=== PATIENT | female | born 1990 | race Hispanic/Latino ===

== ENCOUNTER → 2023-11-16 14:44 | Outpatient (CLI) | payer OTHER, SELFPAY ==
[2023-11-16 15:17] LABS: Add Manual Diff / Slide Review NO; Basophils Absolute Auto 0 /uL (0-100); Basophils Percent Auto 0.5 % (0-2); Eosinophils Absolute Auto 100 /uL (0-450); Eosinophils Percent Auto 1.3 % (2-4); Hematocrit 34.4 % (36-46); Hemoglobin 11.9 g/dL (12.0-16.0); Lymphocytes Absolute Auto 1800 /uL (1100-4500); Mean Corpuscular HGB Conc 34.5 % (30-36); Mean Corpuscular Hemoglobin 31.2 PG (26-34); Mean Corpuscular Volume 90.6 fL (80-100); Monocytes Absolute Auto 700 /uL (0-900); Monocytes Percent Auto 7.3 % (3-14); Neutrophils Absolute Auto 6800 /uL (1500-7000); Neutrophils Percent Auto 71.9 % (50-75); Platelet Count 231 X10^3/uL (150-400); Red Cell Distribution Width 12.6 % (11.6-14.8); White Blood Cell Count 9.4 X10^3/uL (4.5-11.0)
[2023-11-17 04:10] LABS: RPR Screen Non Reactive (Non Reactive)
[2023-11-17 07:21] LABS: Varicella IgG Antibody >4000 index (Immune >165)
[2023-11-19 16:11] LABS: Hepatitis B Surface Antigen NEGATIVE s/c (NEGATIVE)
[2023-11-19 16:22] LABS: HIV 1 & 2 Ab/Ag 4th Gen Combo NEGATIVE (NEGATIVE); Hep C Virus Ab w/Reflex Quant NEGATIVE s/c (NEGATIVE)
== END ==
PROVIDERS: PCP Student in an Organized Health Care Education/Training Program; Referring Provider Obstetrics & Gynecology; Visit Provider Obstetrics & Gynecology
DX: Z34.00 Encounter for supervision of normal first pregnancy, unspecified trimester (principal)
CPT/HCPCS: 36415; 80055; 86787; 86803; 86850; 86900; 86901; 87086; 87389

== ENCOUNTER → 2023-12-14 15:04 | Outpatient (CLI) | payer OTHER, SELFPAY ==
[2023-12-14 17:53] LABS: Urine N gonorrhoeae NOT DETECTED
[2023-12-14 17:58] LABS: Urine Chlamydia NOT DETECTED
[2023-12-18 22:19] LABS: AFP, Serum 44.2 ng/mL (.); Inhibin A, MoM 0.84 (.); Maternal Ethnicity Caucasian (.); Maternal Weight 149 lbs (.); Number of Fetuses No (.); OSBR Risk 1 IN 7603 (.); Results Report (.); Test Results *Screen Negative* (.); hCG, MoM 0.59 (.); hCG, Serum 21081 mIU/mL (.)
[2023-12-19 07:18] LABS: AFP PDF SCANNED
== END ==
LOC: LAB 15:05
PROVIDERS: PCP Student in an Organized Health Care Education/Training Program; Referring Provider Specialist; Visit Provider Specialist
DX: Z34.02 Encounter for supervision of normal first pregnancy, second trimester (principal)
CPT/HCPCS: 36415; 82105; 82677; 84702; 86336; 87491; 87591

== ENCOUNTER → 2024-01-11 14:07 | Outpatient (CLI) | payer OTHER, SELFPAY ==
--- NOTE | 2024-01-11 14:07 | DI.US.S_ITS ---
PROCEDURE: US OB >= 14 WEEKS FETUS INDICATIONS: 20 Week Anatomy Scan OUTSIDE/PRIOR DATING DATA: Last menstrual period (LMP): 08/18/2023. LMP-based estimated date of delivery (SHARON): 05/24/2024. First dating scan (date and location): 10/19/2023. Estimated date of delivery (SHARON) from first dating scan: 05/19/24. TECHNIQUE: Real-time scanning was performed of the fetus, with image documentation and biometric measurements. COMPARISON: [facility], , OB <= 14 WEEKS FETUS, 10/19/2023, 14:50. FINDINGS: General: A single living intrauterine gestation is present. Presentation: Vertex. Placenta: Placental position is anterior , without previa. Amniotic fluid index: 19.5 cm, normal range is 5-24 cm. Single deepest vertical pocket is 5.5 cm. heart rate: 160 beats per minute. Maternal cervical canal: 2 point cm long. Normal lower limit is 2.5 cm. biometrics: Biparietal diameter: 21 weeks 3 days Head circumference: 21 weeks 6 days Abdominal circumference: 22 weeks 1 day Femur length: 22 weeks 1 day Clinically estimated gestational age: 20 weeks 6 days Composite gestational age from present scan: 21 weeks 6 days Estimated weight and percentile: 470 g; 95% for gestational age. Measurement variability for biometric dating: +/- 7 days from 14 weeks to 15 weeks 6 days gestation, +/- 10 days from 16 weeks to 21 weeks 6 days gestation, +/- 2 weeks from 22 weeks to 27 weeks 6 days gestation, +/- 3 weeks for 28 weeks gestation or later. weight reference: 4500 g or EFW >90/95% is considered macrosomia or large for gestational age. EFW <10% is small for gestational age. EFW 5% or less is considered intra-uterine growth restriction. Anatomic survey: Neuro: Ventricles are non-dilated at less than 10 mm. Cisterna magna is normal at 3-11 mm. Cerebellum is normal in size and morphology. Nuchal skin fold: Normal at less than 6 mm between 14-21 weeks gestational age. Face: Nose and lips, facial profile are normal. Spine: No evidence for spina bifida. Heart: 4-chambered heart is present, with normal ventricular outflow tracts. Diaphragm: Diaphragm is intact. Stomach: Left-sided stomach is present. Kidneys: No hydronephrosis. Normal is less than 5 mm in 2nd trimester, less than 7 mm in 3rd trimester. Cord: 3-vessel cord has orthotopic insertion. Bladder: Normal in size. Extremities: All 4 extremities identified. IMPRESSION: 1. A single living intrauterine gestation. Interval growth within normal limits. 2. Normal anatomic survey. 3. The estimated weight is at 95 % for gestational age, concerning macrosomia. We strive to produce accurate, complete, and clear reports of imaging services. To assist us in improving patient care, this report was composed using standard report templates and voice recognition software. Therefore, it may contain abnormal punctuation, insertions and/or omissions. Occasional wrong-word or sound-alike substitutions may occur. Though we review the report and make efforts to correct it, we do recommend that the report be read carefully in proper context to recognize any text inaccuracies. Dictated by: Monica Goldberg M.D. on 01/11/2024 at 16:03 Approved by: Monica Goldberg M.D. on 01/11/2024 at 16:09
== END ==
PROVIDERS: PCP Student in an Organized Health Care Education/Training Program; Referring Provider Specialist; Visit Provider Specialist
DX: Z34.02 Encounter for supervision of normal first pregnancy, second trimester (principal); Z3A.21 21 weeks gestation of pregnancy
CPT/HCPCS: 76811

== ENCOUNTER → 2024-02-08 14:43 | Outpatient (CLI) | payer OTHER, SELFPAY ==
[2024-02-08 17:57] LABS: Hematocrit 34.4 % (36-46); Hemoglobin 11.6 g/dL (12.0-16.0)
[2024-02-08 18:12] LABS: GTT (PREG) 1 Hour PP 50gm Dose 92 mg/dL (76-139)
== END ==
PROVIDERS: PCP Student in an Organized Health Care Education/Training Program; Referring Provider Obstetrics & Gynecology; Visit Provider Obstetrics & Gynecology
DX: Z34.02 Encounter for supervision of normal first pregnancy, second trimester (principal); Z3A.26 26 weeks gestation of pregnancy
CPT/HCPCS: 36415; 82950; 85014; 85018

== ENCOUNTER 2024-04-25 13:56 | Outpatient (CLI) | payer OTHER, SELFPAY | END 2024-04-25 15:38 | disposition home or self-care (01) | LOC: OB 04-28 15:01 | PROVIDERS: PCP Student in an Organized Health Care Education/Training Program; Referring Provider Obstetrics & Gynecology; Visit Provider Obstetrics & Gynecology | DX: Z34.03 Encounter for supervision of normal first pregnancy, third trimester (principal); Z3A.35 35 weeks gestation of pregnancy | CPT/HCPCS: 59025; G0378; G0379 ==

== ENCOUNTER 2024-05-02 13:30 | Outpatient (CLI) | payer OTHER, SELFPAY | END 2024-05-02 13:57 | disposition home or self-care (01) | LOC: LABOR 13:50 → OB 05-05 06:19 | PROVIDERS: PCP Student in an Organized Health Care Education/Training Program; Referring Provider Obstetrics & Gynecology; Visit Provider Obstetrics & Gynecology | DX: O26.893 Other specified pregnancy related conditions, third trimester (principal); R10.9 Unspecified abdominal pain; Z3A.36 36 weeks gestation of pregnancy | CPT/HCPCS: 59025; 87653; G0378; G0379 ==

== ENCOUNTER → 2024-05-02 14:04 | Outpatient (CLI) | payer OTHER, SELFPAY ==
[2024-05-03 13:54] LABS: Strep Grp B PCR POS for Grp B Strep
== END ==
PROVIDERS: PCP Student in an Organized Health Care Education/Training Program; Visit Provider Obstetrics & Gynecology
DX: Z34.03 Encounter for supervision of normal first pregnancy, third trimester (principal); Z3A.36 36 weeks gestation of pregnancy
CPT/HCPCS: 87653

== ENCOUNTER 2024-05-09 13:24 | Observation (INO) | payer OTHER, SELFPAY | END 2024-05-09 14:43 | disposition home or self-care (01) | PROVIDERS: Admitting Provider Obstetrics & Gynecology; PCP Student in an Organized Health Care Education/Training Program; Referring Provider Obstetrics & Gynecology; Visit Provider Obstetrics & Gynecology | DX: O46.93 Antepartum hemorrhage, unspecified, third trimester (principal); O36.8130 Decreased fetal movements, third trimester, not applicable or unspecified; O42.92 Full-term premature rupture of membranes, unspecified as to length of time between rupture and onset of labor; Z3A.38 38 weeks gestation of pregnancy | CPT/HCPCS: 59025; G0378; G0379 ==

== ENCOUNTER 2024-05-11 09:47 | Outpatient (CLI) | payer OTHER, SELFPAY | END 2024-05-11 10:25 | disposition home or self-care (01) | LOC: OB 05-15 08:20 | PROVIDERS: PCP Student in an Organized Health Care Education/Training Program; Referring Provider Family Medicine; Visit Provider Family Medicine | DX: O46.93 Antepartum hemorrhage, unspecified, third trimester (principal); O36.8130 Decreased fetal movements, third trimester, not applicable or unspecified; O47.1 False labor at or after 37 completed weeks of gestation; Z3A.38 38 weeks gestation of pregnancy | CPT/HCPCS: 59025; 84112; G0378; G0379 ==

== ENCOUNTER 2024-05-12 08:05 | Inpatient (IN) | payer OTHER, SELFPAY ==
[2024-05-12 11:11] LABS: Add Manual Diff / Slide Review NO; Basophils Absolute Auto 100 /uL (0-100); Basophils Percent Auto 0.5 % (0-2); Eosinophils Absolute Auto 100 /uL (0-450); Eosinophils Percent Auto 0.8 % (2-4); Hemoglobin 12.6 g/dL (12.0-16.0); Lymphocytes Absolute Auto 1400 /uL (1100-4500); Lymphocytes Percent Auto 12.3 % (25-40); Mean Corpuscular HGB Conc 34.1 % (30-36); Mean Corpuscular Hemoglobin 31.2 PG (26-34); Mean Corpuscular Volume 91.5 fL (80-100); Monocytes Absolute Auto 800 /uL (0-900); Monocytes Percent Auto 7.6 % (3-14); Neutrophils Absolute Auto 8800 /uL (1500-7000); Neutrophils Percent Auto 78.8 % (50-75); Platelet Count 221 X10^3/uL (150-400); Red Blood Cell Count 4.04 X10^6/uL (4.0-5.2); Red Cell Distribution Width 14.3 % (11.6-14.8); White Blood Cell Count 11.1 X10^3/uL (4.5-11.0)
[2024-05-12] MEDS: AMPICILLIN 2,000 MG in SODIUM CHLORIDE 0.9% 100 ML 200 MG IV (11:21)
[2024-05-12] MEDS: LACTATED RINGERS 1,000 ML 100 ML IV (11:23)
--- NOTE | 2024-05-12 14:29 | PM.OBHP.1 ---
OB HPI Date/Time Date of admission: 05/12/24 Date Patient Seen: 05/12/24 History of Present Condition Chief complaint: NST : 1 Estimated Date of Delivery: 05/24/24 Estimated Gestational Age (weeks): 38.2 Narrative: Soraya George is a 33 year old female G1 at 38w2d who presents with c/o new vaginal bleeding and concern for LOF. Was seen at end of last week and over weekend for prodromal labor and r/o SROM, amnitest negative and discharged with precautions. Pt states she awoke this AM with new bright red vaginal bleeding on her pad as well as some fluid. +SROM confirmed on arrival per sterile speculum exam History of Present care: good care Dating criteria: LMP confirmed by 1st trimester US Ultrasounds: normal 1st trimester US and normal mid trimester US Abnormal ultrasound findings: noted grade 3 placenta Preadmission Labs Blood type: O (+) positive -: Antibody screen: negative, Cystic fibrosis screen: unknown, GBS status: positive, HBsAG: negative, HIV: negative, HSV 1: unknown, HSV 2: unknown and RPR/VDLR: negative -: Chlamydia screen: not detected and Gonorrhea screen: not detected -: Rubella: immune and Varicella: immune HCT: 37.0 PAP: Normal Quad screen: Normal 1 hr GTT: 96 Prior (ies) History: n/a Evaluation Evaluation Baseline heart rate: 140 Variability: Moderate (11-25) monitor accelerations: Present Monitor Decelerations: Absent Contraction Frequency (minutes): 4 Uterine Contraction Intensity: Moderate Category of Tracing: Reactive Status: Category l Dilation (cm): 3 Effacement (%): 80 Dilation: 3-4 cm Effacement: >/=80% station: -2 Position of cervix: mid Consistency: medium Arevalo score: 8 Comments: +pooling, noted wet perineum PFSH Medical History (Updated 03/07/24 @ 09:26 by Almaz Green MD) Depression (~2020) Anxiety (~2020) Migraines (~2018) Tinnitus (~2017) Chlamydia (~2012) Healthy adult Surgical History (Updated 12/07/23 @ 13:51 by Renate Mosqueda) Anesthesia History of photorefractive keratectomy (PRK) (~04/2016) History of appendectomy (~2009) [place] teeth extracted Family History (Updated 12/07/23 @ 13:56 by Renate Mosqueda) Grandmother Diabetes mellitus Hyperlipidemia Hypertension Stroke Mother Depression Anxiety Cervical cancer Hx of cholecystectomy Osteopenia Fibrocystic breast changes GERD (gastroesophageal reflux disease) Hypertension Mental health problem Grandfather Pancreatic cancer Grandmother Diabetes mellitus Hypertension Hyperlipidemia Pancreatic cancer Grandfather Family estrangement Diabetes mellitus Hypertension Father Diabetes mellitus Hypertension Brother Lupus Sister Gastrointestinal disorder Thyroid disease Uncle Stomach cancer Aunt Kidney disease Uncle Alcohol abuse Alcoholic liver disease Brother Mental health problem Social History marital status: number of children: 0 household members: spouse lives independently: Yes caregiver/support person: No housing: house pets and animals: Yes (dogs) education level: college (Associate's degree) occupational status: employed (works from home) current occupational exposures/hazards: Yes special oma needs: No travel history: recent ([place], [place], domestic) seatbelt use: always water heater temp set < 120 deg: Yes working smoke detector in home: Yes fire extinguisher in home: Yes carbon monox detector in home: Yes firearms in home: Yes firearms unloaded and locked: Yes do you feel safe at home: Yes Smoking Status: Never smoker second hand exposure: No alcohol intake: former (3-5 glasses wine/week when not ) substance use type: does not use during the past year weight has: decreased > 10 lbs (intentional) daily servings fruits/ve-4 (mostly fruit, rarely eats vegetables) caffeine: Yes (minimal) Type(s) of exercise: none Meds Home Medications and Allergies Home Medications Medication Instructions Recorded Confirmed Type [id number] 400 mcg-om3 35 mg-dha 25 tab PO 10/08/23 05/09/24 History mg-epa 5 mg-fish oil chewable tablet cholecalciferol (vitamin D3) 25 25 mcg PO DAILY 10/08/23 05/12/24 History mcg (1,000 unit) capsule (Vitamin D3) citalopram 10 mg tablet (Celexa) 10 mg PO DAILY #30 tabs 02/08/24 05/12/24 Rx breast pump #1 ea 03/10/24 05/12/24 Rx Allergies Allergy/AdvReac Type Severity Reaction Status Date / Time No Known Drug Allergies Allergy Unverified 05/09/24 14:00 Review of Systems Review of Systems ROS: Yes All systems reviewed with the patient and are negative except as otherwise documented OB Exam Vital signs Blood Pressure: 130/72 Pulse Rate: 80 Respiratory Rate: 18 Temperature: 36.4 F Narrative Exam Narrative: resting comfortably, breathing through contractions without difficulty HENMT Head: normal to inspection Mouth: oral mucosae normal Eyes General: appearance normal, both eyes and all related structures Resp Effort & Inspection: normal respiratory effort Cardio Rate: regular rate Rhythm: regular rhythm Extremities Lower extremity: Yes normal to inspection GI Inspection: normal to inspection Other: gravid, annabella cephalic 7.5# External Female Exam: Yes normal external appearance Speculum Exam - Vagina: Yes normal appearance of the vagina OB/External & Speculum: other (pooling, prolapsed membranes noted at os ) Presentation: vertex Estimated Weight (lbs): 7 Other: empiric diagnosis of SROM based on pooling, amnisure without utility given recent vaginal bleeding; no evidence of active bleeding on exam, moderate bloody show consistent with early labor Objective Labs 05/12/24 10:15 Labs: Laboratory Results - last 24 hr 05/12/24 10:15 WBC 11.1 H RBC 4.04 Hgb 12.6 Hct 37.0 MCV 91.5 MCH 31.2 MCHC 34.1 RDW 14.3 Plt Count 221 Neut % (Auto) 78.8 H Lymph % (Auto) 12.3 L [place] % (Auto) 7.6 Eos % (Auto) 0.8 L Baso % (Auto) 0.5 Neut # (Auto) 8800 H Lymph # (Auto) 1400 Gran[place] # (Auto) 800 Eos # (Auto) 100 Baso # (Auto) 100 Blood Type O Positive Antibody Screen Negative Assessment and Plan Assessment and Plan Assessment and Plan narrative: 33yo G1 at 38w2d present to L&D in early active labor, presumed SROM prior to arrival Early labor, SROM suspect high leak, +pooling admit to center, anticipate augmentation with pitocin in alevism contractions stop; encourage ambulation, ok for wireless vs intermittent monitoring VSS/afebrile, cat 1 tracing GBS+, start IV amp per protocol plan interval cervical assessment 4-6hrs, sooner PRN/urge to push Pt is consented for vaginal, vaginal operative and delivery as well as transfusion of blood products as medically indicated. Time Spent with Patient Total time spent with greater than 50% in coordination of care (as documented) at patient's floor/unit and/or counseling patient:: 15-24 minutes
[2024-05-12 14:46] VITALS: BP 130/72; PULSE 80; RESP 18; TEMP 2.4; TEMP 36.4
[2024-05-12] MEDS: AMPICILLIN 1,000 MG in SODIUM CHLORIDE 0.9% 100 ML 200 MG IV ×2 (15:32→19:26)
[2024-05-12] MEDS: OXYTOCIN PREMIX 30 UNIT/500 ML PLAST..BAG IV (16:37)
--- NOTE | 2024-05-12 16:50 | PM.AN.REGBLK ---
[facility] <Leatha Major, DO - Last Filed: 05/12/24 16:54> Pre-procedure Procedure: Continuous Lumbar Epidural for L&D (with dural puncture) Attending OB provider: Mattie HANSEN/JAVI narrative: 33yo female in labor requesting epidural. See pre-anesthesia evaluation for further details. ASA Class: II Labs: Hct 37.0 % (36-46) 05/12/24 10:15 Plt Count 221 X10^3/uL (150-400) 05/12/24 10:15 Medications: Current Medications Generic Name Dose Route Start Last Admin Trade Name Freq PRN Reason Stop Dose Admin Calcium Carbonate 1,000 mg 05/12/24 09:43 Calcium Carbonate 500 Mg Tab PO Q4HR PRN Dyspepsia Carboprost Tromethamine 250 mcg 05/12/24 09:43 Carboprost 250 Mcg/Ml Ampul IM Q90M PRN Bleeding Diphenhydramine HCl 25 mg 05/12/24 15:30 Diphenhydramine 50 Mg/Ml Vial IV Q10M PRN Pruritis Ephedrine Sulfate 10 mg 05/12/24 15:30 Ephedrine 50 Mg/Ml Vial IV Q5M PRN Blood pressure decrease more than 20% of baseline. Oxytocin/Lactated Ringer's 30 unit in 500 mls @ 200 mls/hr 05/12/24 09:43 Oxytocin Premix IV CONT PRN Bleeding Protocol Tranexamic Acid 1,000 mg/ 100 mls @ 600 mls/hr 05/12/24 09:43 Sodium Chloride IV NOW PRN Bleeding Ampicillin Sodium 1,000 mg/ 100 mls @ 200 mls/hr 05/12/24 15:30 05/12/24 15:32 Sodium Chloride IV 200 mls/hr Q4H ZAK Administration Lactated Ringer's 1,000 mls @ 100 mls/hr 05/12/24 09:45 05/12/24 11:23 Lactated Ringers IV 100 mls/hr CONT ZAK Administration FENT 2MCG/ML BUPIV 0.125% EPI 200 mcg in 100 mls @ 6 mls/hr 05/12/24 15:30 Fentanyl/Bupiv/Ns 2mcg/Ml - 0.125% EPIDURAL CONT ZAK Oxytocin/Lactated Ringer's 30 unit in 500 mls @ 1 mls/hr 05/12/24 16:15 05/12/24 16:37 Oxytocin Premix IV 1 milliunit/min TITRATE ZAK 1 mls/hr Administration Protocol 1 MILLIUNIT/MIN Lidocaine HCl 20 ml 05/12/24 09:43 Lidocaine 1% 20 Ml INJ INTRA-OP PRN Post Delivery Methylergonovine Maleate 0.2 mg 05/12/24 09:43 Methylergonovine 0.2 Mg Tablet PO Q6HR PRN Heavy Bleeding Methylergonovine Maleate 0.2 mg 05/12/24 09:43 Methylergonovine 0.2 Mg/Ml Vial IM NOW PRN Bleeding Mineral Oil 30 ml 05/12/24 09:43 Mineral Oil 30 Ml Udc TOP PRN PRN Version Misoprostol 800 mcg 05/12/24 09:43 Misoprostol 200 Mcg Tablet FL NOW PRN Bleeding Misoprostol 400 mcg 05/12/24 09:43 Misoprostol 200 Mcg Tablet SL NOW PRN Bleeding Nalbuphine HCl 2.5 mg 05/12/24 15:30 Nalbuphine 20 Mg/Ml Ampul IV Q10M PRN Pruritis Naloxone HCl 0.2 mg 05/12/24 09:43 Naloxone 0.4 Mg/Ml Vial IV Q2MIN PRN Opiate Reversal Ondansetron HCl 4 mg 05/12/24 09:43 Ondansetron 4 Mg/2 Ml Inj IV Q4HR PRN Nausea And Vomiting Oxytocin 10 unit 05/12/24 09:43 Oxytocin 10 Unit/Ml Vial IM NOW PRN Bleeding Allergies: Allergies Allergy/AdvReac Type Severity Reaction Status Date / Time No Known Drug Allergies Allergy Unverified 05/09/24 14:00 Procedure Insertion date: 05/12/24 Insertion time: 16:52 Prep/Local: 1% lidocaine (3 ml, chloraprep) Interspace: L3-4 Patient position: sitting Needle: 18 gauge Hustead (27g 5 Pencan for dural puncture) Loss of resistance with: saline RAMANA at (cm): 7 Catheter placed at SKIN (cm): 14 Catheter in SPACE (cm): 7 Insertion: Yes CSF, No Blood, Yes Paresthesia with insertion, No Paresthesia with injection and No Test dose reaction Initial Medications TEST DOSE time: 16:53 TEST DOSE: 1.5% lidocaine with epinephrine 1:200k (mL): 3 BOLUS DOSE time: 15:12 BOLUS DOSE (mL): 2 BOLUS DOSE med: other (same as test dose) Infusion INFUSION: 0.125% bupivacaine and with fentanyl 2 mcg/mL Initial rate (mL/hr): 10 Subsequent interventions: Pt c/o 5/10 pain when epidural infusion started. Bolused with additional 5 ml from epidural infusion bag. Post-procedure Anesthesia date START: 05/12/24 Anesthesia time START: 16:54 <Yonatan Astorga DO - Last Filed: 05/12/24 23:00> Infusion Subsequent interventions: Pt c/o 5/10 pain when epidural infusion started. Bolused with additional 5 ml from epidural infusion bag. Leak noted at filter. Filter removed and pt given 5mL bolus with resolution of pain. . Post-procedure Anesthesia date END: 05/12/24 Anesthesia time END: 21:46 Post-procedure Anesthesia Assessment: Yes CV function: HR/BP stable, Yes Resp function: RR/sat/airway adequate, Yes Post-op hydration adequate, Yes Pain control adequate, Yes Nausea & vomiting absent, Yes Temperature > 36 C, Yes Mental status appropriate and No Anesthesia complications
--- NOTE | 2024-05-12 22:14 | PM.OBPRVD ---
Events: Other (SROM prior to arrival, no complications ) Labor & Delivery Delivery date: 05/12/24 Intrapartal Events: None Cervical ripening method: none Induction method: none Delivery augmentation: pitocin Delivery monitor: external FHT Route of delivery: Episiotomy description: None L&D Laceration Description: Perineal - 2nd Degree Delivery repair: vicryl Estimated blood loss (mL): 300 Anesthesia Type: Epidural Complications: none Narrative: Patient notified RN of increased sensation of rectal pressure, SVE C/C/+1. Progressive descent with excellent maternal effort. Delivery of head in LOT position with restitution to OA. Anterior shoulder delivered without difficulty with gentle downward traction, subsequent spontaneous delivery of posterior shoulder and body thereafter. vigorous at delivery and placed on maternal abdomen. Delayed cord clamping x120s. Cord doubly clamped and cut by FOB; 3VC noted. Cord blood collected. Spontaneous delivery of placenta <5min from delivery with gentle downward traction on UC. Perineal exam noted a 2nd degree laceration repaired with 2-0 vicryl in standard fashion with excellent reapproximation noted. Hemostasis noted. Fundus palpated and noted to be firm. Straight catheterization of approximately 100cc clear urine. All counts correct x2. Baby 1: gender: Female Presentation: vertex Position: Left Occiput Transverse Placenta delivery description: Spontaneous Cord Vessel Description: 3 Vessels score (1 min): 8 score (5 min): 9 Plan for aftercare: Routine care
[2024-05-12] MEDS: ONDANSETRON 4 MG/2 ML INJ IV (23:55)
[2024-05-13 06:54] LABS: Hematocrit 28.9 % (36-46); Hemoglobin 9.9 g/dL (12.0-16.0)
[2024-05-13 07:00] VITALS: BP 99/67; PULSE 66; RESP 18; TEMP 36.6
[2024-05-13] MEDS: ACETAMINOPHEN 325 MG TABLET 650 MG PO ×3 (09:05→22:35)
[2024-05-13] MEDS: CITALOPRAM 10 MG TABLET PO (09:05)
[2024-05-13] MEDS: IBUPROFEN 600 MG TABLET PO ×3 (09:05→22:35)
--- NOTE | 2024-05-13 13:49 | PM.OBPN.1 ---
Subjective - OB Subjective Patient comments: pain well controlled and tolerating diet [place] baby status: doing well and nursing well [place] feeding status: exclusively breast feeding Narrative: Pt resting in chair, at breast. States overall she is feeling well, denies fever/chills, n/v, dysuria. States lochia is dl to heavy menses, not passing clots. Does endorse diffuse msk aching and tenderness, likely secondary to expulsive efforts with epidural in place. CHRISTINA per RN, maternal VSS/afebrile Date Patient Seen: 05/13/24 Time Patient Seen: 12:00 Interval history: PPD1 s/p of LBFI Exam Vital Signs (past 8 hours): maternal VSS reviewed as per OBIX and wnl, afebrile Const General: cooperative, healthy appearing and well developed Nutritional Appearance: average body habitus Orientation: alert, awake and oriented x3 Limitations: mental status not altered HENMT Head: normal to inspection Mouth: moist mucous membranes Neck Neck: normal visual inspection Chest Chest: normal inspection of the chest Breast inspection: normal inspection of the breasts Resp Effort & Inspection: normal respiratory effort Cardio Rate: regular rate Pulses: normal peripheral pulses GI Inspection: normal to inspection Other: fundus firm << umb, mild tenderness to palpation without rebound or guarding Other: deferred per shared decision making with patient; 2nd degree laceration repaired with 2-0 vicryl Skin General: no rashes or lesions noted Neuro General: patient alert, patient awake and patient oriented x3 Extrem General: normal to inspection Psych Appearance: grossly normal Mental Status: mental status grossly normal Speech and Movement: speech and movement normal Mood: congruent mood Affect: normal affect Judgment: judgment good Objective Labs 05/13/24 06:45 Labs: Laboratory Results - last 24 hr 05/13/24 06:45 Hgb 9.9 L Hct 28.9 L Assessment & Plan Plan day: 1 plan OB: routine care Comments: Asymptomatic chronic maternal anemia with acute superimposed blood loss; plan for iron supplementation on discharge PNL reviewed, rubella immune, GBS+, remainder wnl noted mild fundal tenderness on exam, no maternal fever or increased bleeding concerning for endometritis however low threshold to start abx if abdominal tenderness persists or worsens exclusively, support PRN POP on discharge for contraception anticipate dc to home PPD2 pending clinical course Time Spent With Patient Time: Total time spent is greater than 50% in coordination of care (as documented) at patient's floor/unit and/or counseling patient: Time with patient: 15-24 minutes
[2024-05-13] MEDS: LANOLIN OINT 7 GM 1 APPLIC TOP (22:35)
[2024-05-14] MEDS: IBUPROFEN 600 MG TABLET PO (07:22)
[2024-05-14] MEDS: CITALOPRAM 10 MG TABLET PO (07:23)
[2024-05-14] MEDS: ACETAMINOPHEN 325 MG TABLET 650 MG PO (07:38)
--- NOTE | 2024-05-14 08:05 | P.DS_ITS ---
Discharge Providers Provider Date of admission: 05/12/24 08:05 Discharge Date: 05/14/24 Primary care physician: Samina Mahoney MD Consults: 05/12/24 09:43 Consult to Anesthesiology Urgent Comment: Consulting Provider: Anesthesiologist Reason for consultation: Epidural 05/13/24 22:10 Consult to Medical Collections Specialist Routine Comment: Discharge provider: Anabela Jackson MD Summary Hospital Course Date Patient Seen: 05/14/24 Time Patient Seen: 08:15 Diagnoses: 38-2/7 weeks gestation Spontaneous rupture of membranes Epidural analgesia Spontaneous vaginal delivery Second-degree laceration Hospital Course: Patient is a 33-year-old 1 who presented on May 12, 2024 with spontaneous rupture of membranes and in early labor. At 5 cm she was started on Pitocin. She received an epidural for pain management. On May 13, 2024 she had a spontaneous vaginal delivery without complication. Her course was unremarkable. She was discharged home on May 14, 2024. Peripartum Data Delivery Method: Natural Vaginal Laceration Description: Perineal - 2nd Degree Episiotomy description: None Procedures: Epidural analgesia Pitocin augmentation of labor Spontaneous vaginal delivery Second-degree laceration repair complications: none 1: Gender: Female Disposition of : home Status at Discharge Cognitive/behavioral status at discharge: oriented Functional status at discharge: independent ambulation Overall status at discharge: patient is progressing back to baseline Time Spent with Patient Time attestation: Total time spent providing and/or coordinating discharge services: Time spent: Less than 30 minutes Objective Labs 05/13/24 06:45 Exam Narrative Exam Narrative: Generally: Patient is sitting up in bed, no acute distress Fundus: Firm at U -1 Extremities: Trace edema, negative [place] Discharge Plan Discharge Plan Patient Disposition: Home Provider Discharge Comment: Call with fever, chills, or bleeding vaginally more than a pad in an hour Ibuprofen 600 mg every 6 hours as needed for cramping Tylenol 650 mg every 6 hours as needed for pain Push oral fluids Continue vitamins Discharge orders & Medications Prescriptions: Continued [id number] oil 400 mcg-35 mg -25 mg-5 mg tablet,chewable PO cholecalciferol (vitamin D3) [Vitamin D3] 25 mcg (1,000 unit) capsule 25 mcg PO DAILY citalopram [Celexa] 10 mg tablet 10 mg PO DAILY Qty: 30 4RF No Action (DME) breast pump Device See Rx Instructions .ROUTE .MEDSUPPLY Qty: 1 0RF Rx Instructions: Double electric breast pump and supplies Follow up/Referrals: Anabela Jackson MD [Physician] - 6 Weeks (Post appt on 06/27/2024 @ [address] Jacksno) Diet/Activity/Treatments Diet: Regular Activity: Nothing in the vagina for 6 weeks Skin/Wound/Dressing Care Report to your healthcare provider any signs of infection, such as:: chills, fever, increased pain and unusual drainage Visit Report/Discharge Packet Instructions: DI for Labor and Delivery, Vaginal Stand Alone Forms: Patient Portal/API, Stroke Signs & Symptoms Discharge Data Primary Care Provider: Samina Mahoney
== END 2024-05-14 12:15 | disposition home or self-care (01) | DRG 807 ==
PROVIDERS: Admitting Provider Obstetrics & Gynecology; PCP Student in an Organized Health Care Education/Training Program; Referring Provider Obstetrics & Gynecology; Visit Provider Obstetrics & Gynecology
DX: O46.93 Antepartum hemorrhage, unspecified, third trimester (principal); O70.1 Second degree perineal laceration during delivery; Z37.0 Single live birth; O99.824 Streptococcus B carrier state complicating childbirth; Z3A.38 38 weeks gestation of pregnancy
CPT/HCPCS: 36415; 59050; 85014; 85018; 85025; 86850; 86900; 86901; G0379; J0290; J2405; J2590

== ENCOUNTER 2024-05-17 00:47 | Emergency (ER) | payer OTHER, SELFPAY ==
[2024-05-17 00:55] VITALS: BP 109/63; PULSE 76; RESP 16; TEMP 36.7; O2SAT 95; BMI 28.3
[2024-05-17 02:03] VITALS: BP 109/63
--- NOTE | 2024-05-17 02:47 | DI.US.S_ITS ---
PROCEDURE: US PELVIC COMPLETE INDICATIONS: PAIN, FEVER 5 DAYS POST TECHNIQUE: Real-time scanning was performed of the pelvic organs, with image documentation. COMPARISON: None. FINDINGS: Uterus: 18.4 x 8.2 x 12.3 cm. Endometrium measures 8 mm. There is no hypervascular mass. Ovaries: 13 cc on the right. 8 cc on the left. Color and spectral flows are seen, mostly arterial on today's study. Other: No pathologic free fluid. IMPRESSION: No sonographic evidence of retained products. appearance of the uterus. Mostly arterial waveforms are seen in the right ovary, which is prominent at 13 cc. Agree with prelim report. Dictated by: Mert Arizmendi M.D. on 05/17/2024 at 7:51 Approved by: Mert Arizmendi M.D. on 05/17/2024 at 7:53
--- NOTE | 2024-05-17 02:49 | ED.ABDPAIN ---
HPI - Abdominal Pain General Chief Complaint: Fever Stated Complaint: abd pain and fever Time Seen by Provider: 05/17/24 02:47 Source: patient Mode of arrival: Family Vehicle History of Present Illness HPI narrative: 33-year-old female now day 5 from vaginal live viable female term , had care by Dr. Jackson, delivery performed by Dr. Atkinson on-call, had small episiotomy/tear repaired, otherwise unremarkable delivery and course while in hospital, discharged home, . She recalls having GBS positive swab, IV antibiotic intrapartum given, not discharged on any oral antibiotic. No urinary tract infection known. Since last night having increasing suprapubic area discomfort, measured fever 101, took ibuprofen, feels better. Abdominal discomfort decreased. Ongoing lochia rubra minimal bleeding. Denies dysuria, denies flank pain. Denies nausea or vomiting. Denies loose stools, red stools. Related Data Home Medications Medication Instructions Recorded Confirmed [id number] 400 mcg-om3 35 mg-dha 25 tab PO 10/08/23 05/09/24 mg-epa 5 mg-fish oil chewable tablet cholecalciferol (vitamin D3) 25 25 mcg PO DAILY 10/08/23 05/12/24 mcg (1,000 unit) capsule (Vitamin D3) Previous Rx's Medication Instructions Recorded citalopram 10 mg tablet (Celexa) 10 mg PO DAILY #30 tabs 02/08/24 breast pump #1 ea 03/10/24 Allergies Allergy/AdvReac Type Severity Reaction Status Date / Time No Known Drug Allergies Allergy Unverified 05/09/24 14:00 Review of Systems Review of Systems Narrative: Per HPI Patient History Medical History (Updated 05/17/24 @ 04:48 by Eduard Matthews MD) Depression (~2020) Anxiety (~2020) Migraines (~2018) Tinnitus (~2017) Chlamydia (~2012) Healthy adult Surgical History (Updated 12/07/23 @ 13:51 by Renate Mosqueda) Anesthesia History of photorefractive keratectomy (PRK) (~04/2016) History of appendectomy (~2009) [place] teeth extracted Family History (Updated 12/07/23 @ 13:56 by Renate Mosqueda) Grandmother Diabetes mellitus Hyperlipidemia Hypertension Stroke Mother Depression Anxiety Cervical cancer Hx of cholecystectomy Osteopenia Fibrocystic breast changes GERD (gastroesophageal reflux disease) Hypertension Mental health problem Grandfather Pancreatic cancer Grandmother Diabetes mellitus Hypertension Hyperlipidemia Pancreatic cancer Grandfather Family estrangement Diabetes mellitus Hypertension Father Diabetes mellitus Hypertension Brother Lupus Sister Gastrointestinal disorder Thyroid disease Uncle Stomach cancer Aunt Kidney disease Uncle Alcohol abuse Alcoholic liver disease Brother Mental health problem Social History marital status: number of children: 0 household members: spouse lives independently: Yes caregiver/support person: No housing: house pets and animals: Yes (dogs) education level: college (Associate's degree) occupational status: employed (works from home) current occupational exposures/hazards: Yes special oma needs: No travel history: recent ([place], [place], domestic) seatbelt use: always water heater temp set < 120 deg: Yes working smoke detector in home: Yes fire extinguisher in home: Yes carbon monox detector in home: Yes firearms in home: Yes firearms unloaded and locked: Yes do you feel safe at home: Yes Smoking Status: Never smoker second hand exposure: No alcohol intake: former (3-5 glasses wine/week when not ) substance use type: does not use during the past year weight has: decreased > 10 lbs (intentional) daily servings fruits/ve-4 (mostly fruit, rarely eats vegetables) caffeine: Yes (minimal) Type(s) of exercise: none Smoking Status: Never smoker Exam Narrative Exam Narrative: GENERAL: Well-developed patient, in mild distress. HEAD: Atraumatic. Normocephalic. EYES: Pupils equal round and reactive. Extraocular motions intact. No scleral icterus. No injection or drainage. ENT: Nose without bleeding, purulent drainage. Throat without erythema, tonsillar hypertrophy or exudate. Airway patent. NECK: Trachea midline. Non tender CARDIOVASCULAR: Regular rate and rhythm without murmurs, gallops, or rubs. RESPIRATORY: Clear to auscultation. Breath sounds equal bilaterally. No wheezes, rales, or rhonchi. GASTROINTESTINAL: Mild tenderness suprapubic, bowel tones unremarkable, no guarding or rebound tenderness, nondistended. EXTREMITIES: No edema or joint tenderness. BACK: Nontender without deformity or crepitance. No flank tenderness. NEURO: AOx3. SKIN: No rash or erythema of visible areas Initial Vital Signs Initial Vital Signs: Vital Signs Temperature 98.1 F 06/29/24 00:55 Pulse Rate 76 05/17/24 00:55 Respiratory Rate 16 05/17/24 00:55 Blood Pressure 109/63 05/17/24 00:55 Pulse Oximetry 95 05/17/24 00:55 Oxygen Delivery Method Room Air 05/17/24 00:55 Course Orders Ordered: ED Orders 05/17/24 02:47 US pelvic complete Stat 05/17/24 03:55 Complete Blood Count AUTO DIFF Stat Comprehensive Metabolic Panel Stat Lipase Stat Discontinued Medications Sodium Chloride (Normal Saline 0.9%) 1,000 mls @ 1,000 mls/hr IV BOLUS ONE Stop: 05/17/24 03:47 Last Infusion: 05/17/24 04:55 Dose: Infused Documented By: Admin: 05/17/24 03:55 Dose: 1,000 mls/hr Documented By: KEVIN Vital Signs Vital signs: Vital Signs - 8 hr 05/17/24 00:55 05/17/24 02:03 05/17/24 05:24 Temperature 98.1 F 98.7 F Pulse Rate 76 70 Respiratory Rate 16 16 Blood Pressure 109/63 109/63 118/66 Pulse Oximetry 95 98 Oxygen Delivery Method Room Air Room Air MDM - Abdominal Pain Lab Data Attestation: I reviewed the patient's lab results. 05/17/24 03:55 05/17/24 03:55 Labs: Lab Results 05/17/24 Range/Units 03:55 WBC 9.7 (4.5-11.0) X10^3/uL RBC 3.13 L (4.0-5.2) X10^6/uL Hgb 9.9 L (12.0-16.0) g/dL Hct 28.4 L (36-46) % MCV 90.5 (80-100) fL MCH 31.5 (26-34) PG MCHC 34.8 (30-36) % RDW 14.1 (11.6-14.8) % Plt Count 228 (150-400) X10^3/uL Neut % (Auto) 77.9 H (50-75) % Lymph % (Auto) 14.2 L (25-40) % [place] % (Auto) 5.9 (3-14) % Eos % (Auto) 1.6 L (2-4) % Baso % (Auto) 0.4 (0-2) % Neut # (Auto) 7600 H (5265-7704) /uL Lymph # (Auto) 1400 (1450-1389) /uL [place] # (Auto) 600 (0-900) /uL Eos # (Auto) 200 (0-450) /uL Baso # (Auto) 0 (0-100) /uL Sodium 139 (137-145) mmol/L Potassium 4.0 (3.4-5.1) mmol/L Chloride 111 H (98-107) mmol/L Carbon Dioxide 26 (22-32) mmol/L BUN 12 (7-17) mg/dL Creatinine 0.49 L (0.52-1.04) mg/dL Estimated GFR > 60 (>60) mL/min BUN/Creatinine Ratio 24.5 H (6-22) Glucose 94 (70-100) mg/dL Calcium 8.7 (8.4-10.2) mg/dL Total Bilirubin 0.5 (0.2-1.3) mg/dL AST 51 H (14-36) IU/L ALT 74 H (<35) IU/L Alkaline Phosphatase 184 H (38-126) U/L Total Protein 6.2 L (6.3-8.2) g/dL Albumin 3.5 (3.5-5.0) g/dL Globulin 2.7 (1.7-4.1) g/dL Albumin/Globulin Ratio 1.3 (1.0-2.8) Lipase 52 (23-300) U/L Point of care testing: Urine Dip Bedside Urine Glucose Negative Bedside Urine Bilirubin - Negative Bedside Urine Ketone - Negative Urine Specific [place] 1.000 Bedside Urine Occult Blood +++ Bedside Urine pH 6.5 Bedside Urine Protein - Negative Bedside Urine Urobilinogen - Negative Bedside Urine Nitrite - Negative Bedside Urine Leukocytes - Negative Esterase MDM Narrative Medical decision making narrative: 33-year-old female day 5 from vaginal and episiotomy/laceration repair, suprapubic area lower abdominal discomfort, with reported fever, improved pain and fever with ibuprofen dose taken prior to arrival. Mild tenderness suprapubic area, afebrile on triage, sirs screen negative. DX consider endometritis, urinary tract infection, wound infection, other. Labs sent. Ultrasound pelvis requested. White blood cell count not elevated. Hemoglobin 9.9 similar to discharge. Urine dip positive for blood on non catheter specimen, negative for nitrites and leukocyte esterase. Pelvic ultrasound faxed hand written tech report. Uterus 18.4 by 8.2 x 12.3 cm, no evidence retained products of conception. Ovaries unremarkable, normal vascularity bilateral. No fluid in cul-de-sac. Pelvic ultrasound radiology report transabdominal study. Impressions: ?No evidence of retained products of conception. enlarged uterus. Incomplete evaluation for presence or absence of torsion on Doppler images since only arterial waveforms were obtained from the ovaries.? See radiology report. Case discussed with Ob Dr. Jackson on-call, who is patient own business operations director, we will discharge patient home, we will likely have phone follow up over the weekend. Return precautions discussed. Home with family. Discharge Plan Departure Patient Disposition: Home Clinical Impression: fever Activity Restrictions/Additional Instructions: day 5 from vaginal , with reported fever today, no cough cold symptoms. No breast redness or rash. Some lower abdominal discomfort, unremarkable continued lochia rubra ( bleeding) in her volume that would be as expected. No fever on triage here, though you had taken some ibuprofen before coming in. Labs sent, white blood cell count 9000 not elevated. Urine dip testing not obvious for infection. Pelvic ultrasound showed no obvious inflammatory changes to the uterus, unremarkable adnexal structures, with no retained products of conception, per industrial electrical technician written preliminary report. Review of ultrasound by Radiology we will occur later today. On exam he did not seem to have breast redness or tenderness, to suggest acute mastitis that can be associated with . Case discussed with Dr. Jackson your business operations director who happened to be on-call, okay to discharge home for now, he will likely follow up with you by phone over the weekend. Hold on oral antibiotics for now. Return if any change worsening symptoms or any concerns prior Prescriptions: No Action (DME) breast pump Device See Rx Instructions .ROUTE .MEDSUPPLY Qty: 1 0RF Rx Instructions: Double electric breast pump and supplies [id number] oil 400 mcg-35 mg -25 mg-5 mg tablet,chewable PO cholecalciferol (vitamin D3) [Vitamin D3] 25 mcg (1,000 unit) capsule 25 mcg PO DAILY citalopram [Celexa] 10 mg tablet 10 mg PO DAILY Qty: 30 4RF Referrals: Samina Mahoney MD [Primary Care Provider] - Anabela Jackson MD [Physician] - Stand Alone Forms: Patient Portal/API
[2024-05-17] MEDS: SODIUM CHLORIDE 0.9% 1,000 ML 1000 ML IV (03:55)
[2024-05-17 04:03] LABS: Add Manual Diff / Slide Review NO; Basophils Absolute Auto 0 /uL (0-100); Basophils Percent Auto 0.4 % (0-2); Eosinophils Absolute Auto 200 /uL (0-450); Eosinophils Percent Auto 1.6 % (2-4); Hematocrit 28.4 % (36-46); Hemoglobin 9.9 g/dL (12.0-16.0); Lymphocytes Absolute Auto 1400 /uL (1100-4500); Lymphocytes Percent Auto 14.2 % (25-40); Mean Corpuscular HGB Conc 34.8 % (30-36); Mean Corpuscular Hemoglobin 31.5 PG (26-34); Mean Corpuscular Volume 90.5 fL (80-100); Monocytes Absolute Auto 600 /uL (0-900); Monocytes Percent Auto 5.9 % (3-14); Neutrophils Absolute Auto 7600 /uL (1500-7000); Neutrophils Percent Auto 77.9 % (50-75); Platelet Count 228 X10^3/uL (150-400); Red Blood Cell Count 3.13 X10^6/uL (4.0-5.2); Red Cell Distribution Width 14.1 % (11.6-14.8); White Blood Cell Count 9.7 X10^3/uL (4.5-11.0)
[2024-05-17 04:21] LABS: Alanine Aminotransferase 74 IU/L (<35); Albumin 3.5 g/dL (3.5-5.0); Albumin Globulin Ratio 1.3 (1.0-2.8); Alkaline Phosphatase 184 U/L (38-126); Aspartate Aminotransferase 51 IU/L (14-36); BUN Creatinine Ratio 24.5 (6-22); Bilirubin Total 0.5 mg/dL (0.2-1.3); Blood Urea Nitrogen 12 mg/dL (7-17); Calcium 8.7 mg/dL (8.4-10.2); Carbon Dioxide 26 mmol/L (22-32); Chloride 111 mmol/L (98-107); Estimated Glomerular Filt Rate > 60 mL/min (>60); Globulin 2.7 g/dL (1.7-4.1); Glucose 94 mg/dL (70-100); HEMOLYSIS < 15 (0-50); Lipase 52 U/L (23-300); Sodium 139 mmol/L (137-145); Total Protein 6.2 g/dL (6.3-8.2)
[2024-05-17 05:24] VITALS: BP 118/66; PULSE 70; RESP 16; TEMP 37.1; O2SAT 98
== END 2024-05-17 05:25 | disposition home or self-care (01) ==
PROVIDERS: Emergency Provider Emergency Medicine; PCP Student in an Organized Health Care Education/Training Program
DX: O86.4 Pyrexia of unknown origin following delivery (principal); R10.30 Lower abdominal pain, unspecified
CPT/HCPCS: 76856; 80053; 81003; 83690; 85025; 93975; 99284

== ENCOUNTER → 2024-06-30 13:52 | Outpatient (CLI) | payer OTHER, SELFPAY ==
[2024-06-30 15:40] LABS: Free T4, Direct Thyroxine 0.72 ng/dL (0.78-2.19)
[2024-06-30 15:54] LABS: Thyroid Stimulating Hormone 1.81 uIU/mL (0.47-4.68)
== END ==
PROVIDERS: PCP Student in an Organized Health Care Education/Training Program; Referring Provider Obstetrics & Gynecology; Visit Provider Obstetrics & Gynecology
DX: L85.3 Xerosis cutis (principal)
CPT/HCPCS: 36415; 84439; 84443